=== PATIENT | female | born 1995 | race Caucasian/White ===

== ENCOUNTER 2021-09-12 19:14 | Emergency (ER) | payer OTHER ==
[2021-09-12 20:09] VITALS: TEMP 98.1; BMI 23.3
[2021-09-12] MEDS ORDERED: SODIUM CHLORIDE 0.9% 500 ML INFUS.BAG IV ONE (21:19)
[2021-09-12 21:32] LABS: BASO % 0.3 % (0-2.0); EOS % 2.9 % (0-4.5); HEMATOCRIT 39.9 % (32.4-45.2); HEMOGLOBIN 13.7 GM/dL (10.7-15.3); LYMPH % 32.3 % (8-40); MCHC 34.4 g/dl (32.0-36.0); MEAN CELL VOLUME 84.1 fl (80-96); MEAN PLT VOLUME 7.9 fl (7.5-11.1); MONO % 6.3 % (3.8-10.2); NEUT % 58.2 % (42.8-82.8); PLATELET COUNT 317 10^3/uL (134-434); RBC 4.74 M/mm3 (3.60-5.2); RDW 13.9 % (11.6-15.6); WHITE BLOOD COUNT 6.5 K/mm3 (4.0-10.0)
[2021-09-12 21:59] LABS: CHLORIDE 108 mmol/L (98-107); SODIUM 140 mmol/L (136-145)
[2021-09-12 22:01] LABS: CALCIUM 9.1 mg/dL (8.5-10.1)
[2021-09-12 22:02] LABS: ALBUMIN 3.8 g/dl (3.4-5.0); ANION GAP 3 MMOL/L (8-16); BLOOD UREA NITROGEN 12.4 mg/dL (7-18); CO2 30 mmol/L (21-32); GLUCOSE,RANDOM 90 mg/dL (74-106); INR 1.13 (0.83-1.09); PROTHROMBIN TIME (PATIENT) 12.7 SEC (9.7-13.0)
[2021-09-12 22:05] LABS: ACTIVATED PTT 26.9 SECONDS (25.2-36.5); SGOT/AST 12 U/L (15-37); SGPT/ALT 18 U/L (13-61)
[2021-09-12 22:06] LABS: BILIRUBIN,TOTAL 0.7 mg/dL (0.2-1); TOT PROT 7.3 g/dl (6.4-8.2)
[2021-09-12 22:07] LABS: ALK PHOS 47 U/L (45-117)
[2021-09-12 22:09] LABS: URINE APPEARANCE CLEAR; URINE BILIRUBIN NEGATIVE (NEGATIVE); URINE COLOR YELLOW; URINE GLUCOSE (UA) NEGATIVE (NEGATIVE); URINE KETONE NEGATIVE (NEGATIVE); URINE LEUK ESTERASE NEGATIVE (NEGATIVE); URINE NITRITE NEGATIVE (NEGATIVE); URINE PROTEIN NEGATIVE (NEGATIVE)
[2021-09-12 23:15] VITALS: BP 119/72; PULSE 80
== END 2021-09-12 23:15 | disposition home or self-care (01) ==
LOC: JER 19:14
DX: R55 Syncope and collapse (principal)
CPT/HCPCS: 36415; 76817-TC; 80053; 81003; 84484; 84702; 85025; 85610; 85730; 86850; 86900; 86901; 87086; 93005; 93010; 99284-25

== ENCOUNTER 2021-10-25 11:25 | Emergency (ER) | payer OTHER ==
[2021-10-25 11:41] VITALS: BP 130/86; PULSE 100; TEMP 98.9; BMI 22.6
[2021-10-26 23:07] LABS: SARS-CoV-2 NAA Detected (Not Detected)
== END 2021-10-25 12:05 | disposition home or self-care (01) ==
LOC: FER 11:25
DX: U07.1 COVID-19 (principal); R05.1 Acute cough; J02.9 Acute pharyngitis, unspecified
CPT/HCPCS: 87804; 99283-25; C9803; U0003; U0005

== ENCOUNTER 2023-10-20 04:52 | Day surgery (SDC) | payer OTHER ==
[2023-10-20 07:34] VITALS: BMI 24.2
[2023-10-20] MEDS ORDERED: ROCURONIUM BROMIDE 50 MG/5 ML SYRINGE ONE ×2 (09:02→10:02)
[2023-10-20] MEDS ORDERED: MIDAZOLAM HCL 2 MG/2 ML SINGLE DOSE VIAL ONE (09:02)
[2023-10-20] MEDS ORDERED: PROPOFOL 20 ML ONE (09:02)
[2023-10-20] MEDS ORDERED: DEXAMETHASONE SOD PHOSPHATE 4 MG/1 ML VIAL ONE (09:32)
[2023-10-20] MEDS ORDERED: ONDANSETRON 4 MG/2 ML VIAL ONE (09:32)
[2023-10-20] MEDS ORDERED: SUGAMMADEX SODIUM 200 MG/2 ML VIAL ONE (10:30)
[2023-10-20] MEDS ORDERED: BUPIVACAINE HCL/PF 0.5% (5MG/ML) 10 ML VIAL IJ ONE (10:42)
[2023-10-20] MEDS ORDERED: IBUPROFEN 800 MG/8 ML IJ IVPB PRN (11:03)
[2023-10-20] MEDS ORDERED: oxyCODONE HCL 5 MG TABLET PO PRN (11:03)
[2023-10-20] MEDS ORDERED: ONDANSETRON 4 MG/2 ML VIAL IVPUSH PRN (11:03)
[2023-10-20] MEDS ORDERED: IBUPROFEN 800 MG/8 ML IJ IVPB ONE (11:14)
[2023-10-20] MEDS ORDERED: LACTATED RINGERS SOLUTION 1,000 ML IV SCH (11:15)
[2023-10-20] MEDS ORDERED: oxyCODONE HCL 5 MG TABLET ONE (14:19)
[2023-10-20 15:18] VITALS: RESP 20
[2023-10-20 15:33] VITALS: TEMP 97.8
[2023-10-20 17:31] VITALS: PULSE 78
[2023-10-20 17:42] VITALS: BP 122/70
== END 2023-10-20 16:00 | disposition home or self-care (01) ==
LOC: JASU-SURG 04:52
PROVIDERS: ATTEND Obstetrics & Gynecology
PROC: 0UB04ZZ Excision of Right Ovary, Percutaneous Endoscopic Approach (ICD-10-PCS; principal; 2023-10-20 08:30)
DX: D27.0 Benign neoplasm of right ovary (principal)
CPT/HCPCS: 81025; 88307-TC; 94760

== ENCOUNTER 2023-10-28 18:37 | Emergency (ER) | payer OTHER ==
[2023-10-28 18:51] VITALS: BMI 24.2
[2023-10-28] MEDS ORDERED: ACETAMINOPHEN 1000 MG/100 ML BAG IVPB ONE (20:14)
[2023-10-28] MEDS ORDERED: SODIUM CHLORIDE 0.9% 500 ML INFUS.BAG IV ONE (20:14)
[2023-10-28] MEDS ORDERED: ONDANSETRON 4 MG/2 ML VIAL IVPUSH ONE (20:14)
[2023-10-28] MEDS ORDERED: ACETAMINOPHEN INJECTION 100 ML IVPB ONE (21:44)
[2023-10-28 22:04] LABS: EOS % 4.4 % (0-4.5); HEMATOCRIT 37.5 % (32.4-45.2); HEMOGLOBIN 12.4 GM/dL (10.7-15.3); LYMPH % 34.8 % (8-40); MCHC 32.9 g/dl (32.0-36.0); MEAN CELL VOLUME 85.1 fl (80-96); MEAN PLT VOLUME 8.3 fl (7.5-11.1); MONO % 5.8 % (3.8-10.2); PH,URINE 6.5 (5.0-8.0); PLATELET COUNT 347 10^3/uL (134-434); RBC 4.41 M/mm3 (3.60-5.2); RDW 13.1 % (11.6-15.6); URINE APPEARANCE CLEAR; URINE BILIRUBIN NEGATIVE (NEGATIVE); URINE COLOR YELLOW; URINE GLUCOSE (UA) NEGATIVE (NEGATIVE); URINE KETONE NEGATIVE (NEGATIVE); URINE LEUK ESTERASE NEGATIVE (NEGATIVE); URINE NITRITE NEGATIVE (NEGATIVE); URINE PROTEIN NEGATIVE (NEGATIVE); URINE UROBILINOGEN 0.2 mg/dL (0.2-1.0); WHITE BLOOD COUNT 7.3 K/mm3 (4.0-10.0)
[2023-10-28 22:08] LABS: POTASSIUM 4.2 mmol/L (3.5-5.1)
[2023-10-28 22:10] LABS: ALBUMIN 3.7 g/dl (3.4-5.0); BLOOD UREA NITROGEN 13.1 mg/dL (7-18); CALCIUM 8.7 mg/dL (8.5-10.1)
[2023-10-28 22:14] LABS: BILIRUBIN,TOTAL 0.2 mg/dL (0.2-1); CREATININE 0.8 mg/dL (0.55-1.3); TOT PROT 7.1 g/dl (6.4-8.2)
[2023-10-29] MEDS ORDERED: IBUPROFEN 400 MG TABLET (FP) PO ONE (00:21)
[2023-10-29 03:00] VITALS: BP 94/51; PULSE 83; RESP 18; TEMP 97.7
== END 2023-10-29 03:28 | disposition home or self-care (01) ==
LOC: JER 18:37
PROC: 3E033NZ Introduction of Analgesics, Hypnotics, Sedatives into Peripheral Vein, Percutaneous Approach (ICD-10-PCS; principal; 2023-10-28)
DX: R10.31 Right lower quadrant pain (principal); R14.0 Abdominal distension (gaseous); R22.33 Localized swelling, mass and lump, upper limb, bilateral; R20.2 Paresthesia of skin; Z20.822 Contact with and (suspected) exposure to COVID-19
CPT/HCPCS: 0241U-QW; 36415; 74177-TC; 76830-TC; 80053; 81003; 83690; 84703; 85025; 86850; 86900; 86901; 87086; 99285-25; Q9967